=== PATIENT | female | born 1970 | race Caucasian/White ===

== ENCOUNTER → 2019-08-06 | Outpatient (CLI) | payer BC ==
--- NOTE | 2019-08-06 14:19 | Diagnostic Imaging Report ---
PROCEDURE: US Thyroid. TECHNIQUE: Multiple Real-time grayscale images were obtained of the thyroid in various projections. INDICATION: Thyromegaly. COMPARISON: No prior studies are available for comparison. FINDINGS: The right lobe of the thyroid measures 5.1 x 1.4 x 1.5 cm and the left lobe measures 4.2 x 1.5 x 1.3 cm. Both lobes show fairly homogeneous echotexture. There is a tiny circumscribed hypoechoic nodule in the isthmus on the right measuring approximately 4 mm x 2 mm x 5 mm. No dominant thyroid mass is detected. IMPRESSION: Subcentimeter isthmus nodule. No dominant thyroid mass is detected. Dictated by: Dictated on workstation # [id number]
== END ==
LOC: RAD 12:58
PROVIDERS: ATTEND Nurse Practitioner Family
DX: E04.1 Nontoxic single thyroid nodule (principal)
CPT/HCPCS: 76536

== ENCOUNTER → 2020-01-27 | Outpatient (CLI) | payer BC ==
--- NOTE | 2020-01-27 14:33 | Diagnostic Imaging Report ---
PROCEDURE: US Thyroid. TECHNIQUE: Multiple real-time grayscale images were obtained of the thyroid in various projections. INDICATION: Thyromegaly. COMPARISON: Correlation is made with prior thyroid ultrasound from 08/06/2019. FINDINGS: Right lobe of thyroid measures 5.1 x 1.4 x 1.7 cm and the left lobe measures 4.5 x 1.3 x 1.6 cm. Isthmus is 3 mm in thickness. Again both lobes show fairly homogeneous echotexture. Previously noted small cyst in the isthmus is stable at approximately 4 mm x 2 mm x 5 mm. No dominant thyroid mass is detected. IMPRESSION: Stable cyst in the isthmus when compared with prior exam from 08/06/2019. Dictated by: Dictated on workstation # [id number]
== END ==
LOC: RAD 12:27
PROVIDERS: ATTEND Nurse Practitioner Family
DX: E04.1 Nontoxic single thyroid nodule (principal)
CPT/HCPCS: 76536